=== PATIENT | female | born 1985 | race Two or more races ===

== ENCOUNTER 2018-11-16 07:27 | Outpatient (CLI) | payer OTHER ==
--- NOTE | 2018-11-18 04:43 | Ultrasound Report ---
Reason: CHECK DATING AND VIABILITY. Procedure Date: 11/16/2018 Accession Number: [id number] / [id number] Procedure: US - OB First Trimester CPT Code: FULL RESULT: EXAM: FIRST TRIMESTER OBSTETRIC ULTRASOUND (Less than 11 weeks) EXAM DATE: 11/16/2018 08:36 AM. CLINICAL HISTORY: CHECK DATING AND VIABILITY. LMP: Unknown. COMPARISONS: None. TECHNIQUE: Transabdominal and transvaginal ultrasound examination with static image documentation. ASSESSMENT: Gestational Sac: No gestational sac visualized. Embryo: N/A. Cardiac activity: N/A. Yolk sac: N/A. Amniotic fluid: N/A. Early placenta: N/A. MATERNAL STRUCTURES: Uterus: Anteverted. Unremarkable. Endometrium measures 5 mm in thickness. Cervix: Closed. Right Ovary/Adnexa: The ovary measures 2.2 x 2.0 x 1.8 cm, volume 4.3 cc. Unremarkable. Left Ovary/Adnexa: The ovary measures 2.4 x 3.1 x 2.7 cm, volume 10.1 cc. Cyst/follicle in left ovary measuring 2.1 x 2.4 x 2.3 cm. Free Fluid: Trace free fluid in bilateral adnexa. Other: None. IMPRESSION: 1. No intrauterine visualized. In the setting of positive beta-hCG, findings could represent very early , loss or ectopic . Recommend clinical correlation and correlation with serial beta hCG levels. Repeat ultrasound can be performed as clinically indicated. 2. Trace free fluid in bilateral adnexa, nonspecific. RADIA
== END 2018-11-16 07:28 | disposition home or self-care (01) ==
LOC: DI 07:27
PROVIDERS: ATTEND Obstetrics & Gynecology
DX: Z34.80 Encounter for supervision of other normal pregnancy, unspecified trimester (principal)
CPT/HCPCS: 76801; 76817

== ENCOUNTER 2018-11-25 13:08 | Outpatient (CLI) | payer OTHER | END 2018-11-25 13:09 | disposition home or self-care (01) | LOC: LAB 13:08 | PROVIDERS: ATTEND Obstetrics & Gynecology | DX: Z34.80 Encounter for supervision of other normal pregnancy, unspecified trimester (principal) | CPT/HCPCS: 36415; 84702 ==

== ENCOUNTER 2018-11-26 08:38 | Outpatient (CLI) | payer OTHER ==
[2018-11-26 10:59] LABS: PROLACTIN 8.53 ng/mL
[2018-11-26 11:22] LABS: FOLLICLE STIMULATING HORMONE 2.36 mIU/mL
[2018-11-27 07:08] LABS: PROGESTERONE 20.5 ng/mL
== END 2018-11-26 08:39 | disposition home or self-care (01) ==
LOC: LAB 08:38
PROVIDERS: ATTEND Obstetrics & Gynecology
DX: N91.1 Secondary amenorrhea (principal)
CPT/HCPCS: 36415; 81599; 82670; 83001; 83498; 84144; 84146; 84403; 84443

== ENCOUNTER 2018-12-12 14:35 | Outpatient (CLI) | payer OTHER | END 2018-12-12 14:36 | disposition home or self-care (01) | LOC: DI.N 14:35 | PROVIDERS: ATTEND Obstetrics & Gynecology | DX: Z53.9 Procedure and treatment not carried out, unspecified reason (principal) ==

== ENCOUNTER 2018-12-16 11:11 | Outpatient (CLI) | payer OTHER | END 2018-12-16 23:59 | disposition home or self-care (01) | LOC: LAB.N 11:11 | PROVIDERS: ATTEND Obstetrics & Gynecology | DX: N91.1 Secondary amenorrhea (principal) | CPT/HCPCS: 36415; 82670; 83001; 84702 ==

== ENCOUNTER 2018-12-24 14:37 | Outpatient (CLI) | payer OTHER ==
--- NOTE | 2018-12-24 19:29 | Ultrasound Report ---
Reason: POSITIVE TEST Procedure Date: 12/24/2018 Accession Number: [id number] / [id number] Procedure: US - OB First Trimester CPT Code: Final Report FULL RESULT: EXAM: FIRST TRIMESTER OBSTETRIC ULTRASOUND (Less than 11 weeks) EXAM DATE: 12/24/2018 02:58 PM. CLINICAL HISTORY: Size and dates. LMP: 2018. COMPARISONS: OB FIRST TRIMESTER 11/16/2018 7:34 AM. TECHNIQUE: Transabdominal and transvaginal ultrasound examination with static image documentation. Suboptimal visualization due to patient habitus. CLINICAL DATES: EGA 7 weeks 4 days with CASSANDRA 08/08/2019 based on LMP. ASSESSMENT: Gestational Sac: Single intrauterine. Mean gestational sac diameter: 31.0 mm = 8 weeks 2 days. Embryo: CRL (crown-rump length) 11.7 mm = 7 weeks 2 days. Cardiac activity: 144 beats per minute. Yolk sac: 7.0 mm. Amniotic fluid: Not accurately assessed at this gestational age. Early placenta: Not visible at this gestational age. Other: No perigestational fluid collection demonstrated. MATERNAL STRUCTURES: Uterus: Anteverted. Unremarkable. Cervix: Closed. Right Ovary/Adnexa: The ovary measures 2.9 x 1.5 x 2.4 cm, volume 5.3 cc. Unremarkable. Left Ovary/Adnexa: The ovary measures 2.7 x 3.0 x 3.7 cm, volume 15.9 cc. Unremarkable. Simple cyst measuring 1.8 x 2.3 x 2.0 cm. Additional probable paraovarian cyst measuring 1.6 x 1.1 x 0.7 cm. Free Fluid: None. Other: None. IMPRESSION: 1. Single viable intrauterine at EGA 7 weeks 2 days with CASSANDRA 08/10/2019 based on crown-rump length, which is concordant with clinical dates. 2. Assigned dating is CASSANDRA 08/08/2019 based on LMP. RADIA
--- NOTE | 2018-12-24 19:29 | Ultrasound Report ---
Reason: POSITIVE TEST Procedure Date: 12/24/2018 Accession Number: [id number] / [id number] Procedure: US - OB Transvaginal CPT Code: Preliminary Report FULL RESULT: See separate report.
== END 2018-12-24 14:38 | disposition home or self-care (01) ==
LOC: DI 14:37
PROVIDERS: ATTEND Obstetrics & Gynecology
DX: Z32.01 Encounter for pregnancy test, result positive (principal)
CPT/HCPCS: 76801; 76817

== ENCOUNTER 2019-01-29 08:00 | Outpatient (CLI) | payer OTHER ==
[2019-01-29 14:31] LABS: MUDS CUTOFF CONCENTRATIONS CUTOFF CONC BELOW:
[2019-01-29 14:44] LABS: BILIRUBIN,URINE NEGATIVE (NEGATIVE); GLUCOSE, URINE (UA) NEGATIVE (NEGATIVE); KETONES,URINE (UA) NEGATIVE (NEGATIVE); LEUKOCYTE ESTERASE, URINE NEGATIVE (NEGATIVE); NITRITE,URINE NEGATIVE (NEGATIVE); OCCULT BLOOD,URINE NEGATIVE (NEGATIVE); PROTEIN,URINE NEGATIVE (NEGATIVE); UROBILINOGEN,URINE 0.2 (NORMAL) E.U./dL (NORMAL)
[2019-01-29 15:17] LABS: BACTERIA,URINE Rare /HPF (None Seen); CLARITY,URINE CLEAR (CLEAR); RBC,URINE 0-5 /HPF (0-5); SQUAMOUS EPITHELIAL CELL,UR FEW Squamous (<= Few)
[2019-01-29 15:47] LABS: AMPHETAMINE SCREEN,URINE NEGATIVE (NEGATIVE); BENZODIAZEPINES SCREEN, URINE NEGATIVE (NEGATIVE); COCAINE SCREEN URINE NEGATIVE (NEGATIVE); METHADONE SCREEN, URINE NEGATIVE (NEGATIVE); METHAMPHETAMINES SCREEN, URINE NEGATIVE (NEGATIVE); OPIATE SCREEN, URINE NEGATIVE (NEGATIVE); OXYCODONE SCREEN, URINE NEGATIVE (NEGATIVE); PROPOXYPHENE SCREEN, URINE NEGATIVE (NEGATIVE); TRICYCLIC ANTIDEPRESSANT,URINE NEGATIVE (NEGATIVE)
[2019-01-29 21:25] LABS: TRICHOMONAS VAGINALIS DNA NEGATIVE (NEGATIVE)
== END 2019-01-29 23:59 | disposition home or self-care (01) ==
LOC: LAB.R 08:00
PROVIDERS: ATTEND Nurse Practitioner Obstetrics & Gynecology
DX: Z36.89 Encounter for other specified antenatal screening (principal)
CPT/HCPCS: 80306; 81001; 87086; 87491; 87591; 87661